=== PATIENT | male | born 1995 | race African-American/Black ===

== ENCOUNTER → 2018-12-04 | Outpatient (CLI) | payer OTHER ==
--- NOTE | 2018-12-04 14:16 | REP ---
LEFT KNEE SERIES: FIVE VIEWS. HISTORY: Left knee pain. FINDINGS: Five views of the left knee demonstrate normal bones, joints, and soft tissues. IMPRESSION: Negative left knee radiographs. Electronically Signed by Camilo Nicole MD 12/04/2018 02:21 P
== END ==
LOC: M RAD 08:49
PROVIDERS: ATTEND Surgery
DX: M25.562 Pain in left knee (principal)